=== PATIENT | male | born 1975 | race Caucasian/White ===

== ENCOUNTER 2017-01-29 18:46 | Emergency (ER) | payer SELFPAY ==
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
== END 2017-01-29 19:34 | disposition home or self-care (01) ==
LOC: ER 18:46
DX: S61.012A Laceration without foreign body of left thumb without damage to nail, initial encounter (principal); S20.212A Contusion of left front wall of thorax, initial encounter; Y04.8XXA Assault by other bodily force, initial encounter